=== PATIENT | female | born 1955 | race Caucasian/White ===

== ENCOUNTER 2024-03-31 19:20 | Emergency (ER) | payer MEDICARE, SELFPAY ==
--- NOTE | ~2024-03-31 | CT_ITS ---
EXAMINATION: CT brain wo con DATE: 03/31/2024 18:28 INDICATION: Head injury. TECHNIQUE: Computed tomography (CT) of the head was performed without intravenous contrast. The mA wa s adjusted according to patient size. Iterative reconstruction technique was employed. The dose-lengt h product was 605.33 mGy-cm. COMPARISON: None FINDINGS: There are scattered areas of low attenuation in the cerebral white matter, which is within normal limits for the patient's age. There is no intracranial hemorrhage, acute infarction, or abnorm al intracranial mass lesion. The ventricles are normal in size. The orbits are normal. There is mild mucosal thickening in the ethmoid sinuses. There is a trace right mastoid effusion. There is a right frontal scalp hematoma. IMPRESSION: 1. Normal aging brain. Reviewed, dictated and finalized at location A. S REPRESENTATIVE JEWELRY IMPRESSION: 1. Normal aging brain.
--- NOTE | ~2024-03-31 | CT_ITS ---
EXAMINATION: CT cervical spine wo con DATE: 03/31/2024 18:28 INDICATION: Head injury. TECHNIQUE: Computed tomography (CT) of the cervical spine was performed without intravenous contrast. Automated exposure control and iterative reconstruction technique were employed. The dose-length pro duct was 95.52 mGy-cm. COMPARISON: None FINDINGS: There is 9 degrees levocurvature of cervical spine. Vertebral body heights are normal. Ther e is moderately decreased disc height at C3-C4, mildly decreased disc height at C4-C5, and severely d ecreased disc height at C5-C6. The following disc levels are specifically discussed: C2-C3: There is no uncovertebral joint osteoarthritis. There is moderate right and mild left facet norma int osteoarthritis. There is no neural foraminal stenosis. There is no central canal stenosis. C3-C4: There is ankylosis of the uncovertebral joints with mild left hypertrophy. There is ankylosis of the left facet joint with mild hypertrophy. There is mild left neural foraminal stenosis. There is no central canal stenosis. C4-C5: There is no uncovertebral joint osteoarthritis. There is severe right and mild left facet join t osteoarthritis. There is mild right neural foraminal stenosis. There is no central canal stenosis. C5-C6: There is moderate right and severe left uncovertebral joint osteoarthritis. There is mild bila teral facet joint osteoarthritis. There is moderate left neural foraminal stenosis. There is mild katie tral canal stenosis. C6-C7: There is no uncovertebral joint osteoarthritis. There is severe right and mild left facet join t osteoarthritis. There is mild right neural foraminal stenosis. There is no central canal stenosis. C7-T1: There is no uncovertebral joint osteoarthritis. There is moderate right and severe left facet joint osteoarthritis. There is mild bilateral neural foraminal stenosis. There is no central canal st enosis. IMPRESSION: 1. No fracture. 2. Severe cervical spondylosis. Reviewed, dictated and finalized at location A. GENCY SERVICES PROFESSIONAL
[2024-03-31 18:01] VITALS: BP 185/103; PULSE 74; RESP 16; TEMP 36.4; O2SAT 99
--- NOTE | 2024-03-31 19:05 | ED.HEATRA ---
HPI - Head Injury General Chief complaint: Head Injury Stated complaint: fall Source: patient Mode of arrival: EMS Limitations: no limitations History of Present Illness HPI Narrative: 68-year-old history of hypertension, cuboid bone fracture of the left foot presently in the rehab center , was brought in from the [place] ,with a complaints of fall . pt states she was learning how to pivot ,lost balance and fell , She denies any LOC has a small swelling on the forehead . MD Complaint: head injury Onset (ago): hour(s) (1) Place: other ([place]) Loss of Consciousness: no Severity: mild Radiation: none Other Injuries: none Context: other anticoagulant use Associated symptoms: denies other symptoms Related Data Allergies Allergy/AdvReac Type Severity Reaction Status Date / Time Contrast Media Allergy Unknown Uncoded 12/14/13 16:07 Review of Systems Review of Systems: All systems reviewed & are unremarkable except as noted in HPI and below Constitutional: Constitutional: Reports no additional constitutional complaints Eyes: Eyes: Reports no additional eye complaints ENT: Reports system reviewed and no additional complaints, except as documented Cardiovascular: Cardiovascular: Reports no additional cardiovascular complaints Respiratory: Respiratory: Reports no additional respiratory complaints Gastrointestinal: Gastrointestinal: Reports no additional gastrointestinal complaints Musculoskeletal: Musculoskeletal: Reports no additional musculoskeletal complaints Integumentary/Breasts: Skin/Breast: Reports system reviewed and no additional complaints, except as docu Exam Narrative: GENERAL: Well-appearing, well-nourished, and in no acute distress. HEAD: Normocephalic, atraumatic.has a small frontal hematoma on the right side EYES: PERRLA and EOMI. ENT: Nares clear,. Mucous membranes moist. NECK: Supple. CHEST: Clear to auscultation. No respiratory distress. HEART: Regular rate and rhythm. No murmur heard. Normal peripheral pulses. ABDOMEN: Soft, nontender, nondistended, normal active bowel sounds. EXTREMITIES: Normal range of motion. No edema left leg in a cast.. SKIN: Warm, dry, no rash. NEURO: No focal deficits. Alert and oriented x3. PSYCH: Normal mood and affect. Course Course Emergency Course: Informed her and family abut her CT findings feels comfortable going home. Vital Signs Vital signs: Vital Signs Temperature 36.4 C L 03/31/24 18:01 Pulse Rate 74 03/31/24 18:01 Respiratory Rate 16 03/31/24 18:01 Blood Pressure 185/103 H 03/31/24 18:01 Pulse Oximetry 99 03/31/24 18:01 Temperature 36.4 C L 03/31/24 18:01 Pulse Rate 74 03/31/24 18:01 Respiratory Rate 16 03/31/24 18:01 Blood Pressure 185/103 H 03/31/24 18:01 Pulse Oximetry 99 03/31/24 18:01 MDM - Head Injury Differential Diagnosis Differential diagnosis: Likely concussion without loss of consciousness, closed head injury and subdural hematoma Medical Records Attestation: I reviewed the patient's medical records. Imaging Data Radiologist's impression: ITS Impressions Head CT 03/31/24 18:41 IMPRESSION: 1. Normal aging brain. Cervical Spine CT 03/31/24 18:42 IMPRESSION: 1. No fracture. 2. Severe cervical spondylosis. Discharge Plan Discharge Clinical Impression: Closed head injury Qualifiers: Encounter type: initial encounter Qualified Code(s): S09.90XA - Unspecified injury of head, initial encounter Patient Disposition: [facility]As[facility] Living Condition: Stable Instructions: Head Injury (ED) Patient Language: Tongan Follow-up/Referrals: OSEAS,SB Sorensen M.D. [Primary Care Provider] - Time of Disposition: 19:14
[2024-03-31 22:15] VITALS: BP 123/76; PULSE 67; RESP 18; O2SAT 99
[2024-04-01 00:24] VITALS: BP 131/77; PULSE 77; RESP 17; O2SAT 98
== END 2024-04-01 00:28 ==
PROVIDERS: Emergency Provider Family Medicine; PCP Family Medicine
DX: S00.83XA Contusion of other part of head, initial encounter (principal); S92.212D Displaced fracture of cuboid bone of left foot, subsequent encounter for fracture with routine healing; X58.XXXD Exposure to other specified factors, subsequent encounter; I10 Essential (primary) hypertension; M47.812 Spondylosis without myelopathy or radiculopathy, cervical region; W18.39XA Other fall on same level, initial encounter
CPT/HCPCS: 70450; 72125; 99284